=== PATIENT | male | born 1995 | race American Indian/Alaskan Native ===

== ENCOUNTER 2022-10-25 22:57 | Emergency (ER) | payer BC, MEDICAID, OTHER ==
[2022-10-25 23:13] VITALS: BP 123/74; PULSE 78
[2022-10-26] MEDS ORDERED: Iopamidol 755 Mg/ML 100 ML Bottle IVPUSH ONE (00:40)
== END 2022-10-26 01:20 | disposition home or self-care (01) ==
LOC: JD.ED 22:57
DX: K62.5 Hemorrhage of anus and rectum (principal); Z72.0 Tobacco use
CPT/HCPCS: 36415; 74177; 80053; 81001; 85025; 99284; Q9967